=== PATIENT | female | born 1990 | race Caucasian/White ===

== ENCOUNTER → 2019-03-20 15:04 | Outpatient (CLI) | payer OTHER, SELFPAY | DX: Z23 Encounter for immunization (principal) | CPT/HCPCS: 90471; 90686 ==

== ENCOUNTER → 2020-02-06 02:33 | Outpatient (CLI) | payer OTHER, SELFPAY | PROVIDERS: Referring Provider Internal Medicine; Visit Provider Internal Medicine | DX: Z23 Encounter for immunization (principal) | CPT/HCPCS: 90471; 90686 ==

== ENCOUNTER → 2021-02-03 | Outpatient (CLI) | payer OTHER, SELFPAY | PROVIDERS: Referring Provider Internal Medicine; Visit Provider Internal Medicine | DX: Z23 Encounter for immunization (principal) | CPT/HCPCS: 90471; 90686 ==

== ENCOUNTER → 2022-04-20 07:40 | Outpatient (CLI) | payer OTHER, SELFPAY | PROVIDERS: Referring Provider Internal Medicine; Visit Provider Internal Medicine | DX: Z23 Encounter for immunization (principal) | CPT/HCPCS: 90471; 90686 ==

== ENCOUNTER 2022-07-23 11:32 | Emergency (ER) | payer OTHER, SELFPAY ==
[2022-07-23 11:35] VITALS: BP 136/90; PULSE 77; RESP 15; TEMP 36.4; O2SAT 100
[2022-07-23 12:01] LABS: Add Manual Diff / Slide Review NO; Basophils Absolute Auto 0 /uL (0-100); Basophils Percent Auto 0.7 % (0-2); Eosinophils Absolute Auto 100 /uL (0-450); Eosinophils Percent Auto 2.1 % (2-4); Hematocrit 42.8 % (36-46); Hemoglobin 14.7 g/dL (12.0-16.0); Lymphocytes Absolute Auto 1700 /uL (1100-4500); Mean Corpuscular HGB Conc 34.4 % (30-36); Mean Corpuscular Hemoglobin 31.3 PG (26-34); Mean Corpuscular Volume 91.1 fL (80-100); Monocytes Absolute Auto 500 /uL (0-900); Monocytes Percent Auto 8.6 % (3-14); Neutrophils Absolute Auto 3600 /uL (1500-7000); Neutrophils Percent Auto 59.6 % (50-75); Platelet Count 215 X10^3/uL (150-400); Red Cell Distribution Width 13.4 % (11.6-14.8)
[2022-07-23] MEDS: SODIUM CHLORIDE 0.9% 1,000 ML 1000 ML IV (12:04)
[2022-07-23 12:14] LABS: RBC Urine None Seen (0-5/HPF); Squamous Epithelial Cell Urine 1-5 /HPF (0-5/HPF); WBC Urine 1-5/HPF (0-5/HPF)
[2022-07-23 12:15] LABS: Bacteria Urine Few (2-10)
[2022-07-23 12:16] LABS: Alanine Aminotransferase 18 IU/L (<35); Albumin 5.1 g/dL (3.5-5.0); Albumin Globulin Ratio 1.3 (1.0-2.8); Alkaline Phosphatase 91 U/L (38-126); Aspartate Aminotransferase 22 IU/L (14-36); BUN Creatinine Ratio 14.1 (6-22); Bilirubin Total 0.7 mg/dL (0.2-1.3); Blood Urea Nitrogen 13 mg/dL (7-17); Calcium 9.4 mg/dL (8.4-10.2); Carbon Dioxide 29 mmol/L (22-32); Chloride 101 mmol/L (98-107); Estimated Glomerular Filt Rate > 60 mL/min (>60); Globulin 3.9 g/dL (1.7-4.1); Glucose 89 mg/dL (70-100); HEMOLYSIS < 15 (0-50); Lipase 72 U/L (23-300); Potassium 4.1 mmol/L (3.4-5.1); Sodium 139 mmol/L (137-145)
[2022-07-23 12:16] LABS: Culture Indicated Urine Cult Not Indicated; Mucus Urine 2+ (Negative)
--- NOTE | 2022-07-23 12:50 | ED.ABDPAIN ---
HPI - Abdominal Pain General Chief Complaint: Abdominal Pain Stated Complaint: abd pain N/ T-4 Time Seen by Provider: 07/23/22 12:14 Source: patient Mode of arrival: Ambulatory History of Present Illness HPI narrative: Patient is a healthy 31-year-old female who presents with right-sided abdominal pain. She reports feeling nauseous for the last 3-4 days losing at least 5 lb not eating not drinking no fever or chills. It is nonradiating. Denies painful frequent urination no flank pain. Pain is nonradiating seems to be in the middle of gallbladder right upper quadrant and lower or appendix is. Related Data Previous Rx's Medication Instructions Recorded ondansetron 4 mg disintegrating 4 mg PO Q6H PRN nausea and 07/23/22 tablet vomiting #10 tabs Allergies Allergy/AdvReac Type Severity Reaction Status Date / Time No Known Drug Allergies Allergy Verified 07/23/22 11:35 Review of Systems Review of Systems ROS Unobtainable: All systems reviewed & are unremarkable except as noted in HPI and below Patient History Social History Smoking Status: Unknown if ever smoked Smoking Status: Unknown if ever smoked alcohol intake frequency: holidays/special occasions only Substance Use Type: does not use Exam Initial Vital Signs Initial Vital Signs: Vital Signs Temperature 97.5 F L 07/23/22 11:35 Pulse Rate 77 07/23/22 11:35 Respiratory Rate 15 07/23/22 11:35 Blood Pressure 136/90 07/23/22 11:35 Pulse Oximetry 100 07/23/22 11:35 Oxygen Delivery Method Room Air 07/23/22 11:35 GENERAL: Alert pleasant funny well-appearing 31-year-old female and in [no acute] distress. HEENT: Head atraumatic,EOMI, pupils reactive, face symmetric, [moist] mucous membranes CARDIOVASCULAR: Regular rate and rhythm without murmurs, rubs or gallops. RESPIRATORY: Breath sounds equal bilaterally, no wheezes rales or rhonchi. ABDOMEN: Soft, mild right lower quadrant pain no guarding no rebound, minimal right upper quadrant pain negative Stratton no epigastric pain no distention : No CVA tenderness EXTREMITIES: Normal range of motion, no clubbing or edema. Neurovascularly intact NEUROLOGICAL: Alert and oriented x4. SKIN: Warm, dry, no laceration, no petechiae, no rashes or lesions. Course Orders Ordered: ED Orders 07/23/22 11:50 Complete Blood Count AUTO DIFF Stat Comprehensive Metabolic Panel Stat Lipase Stat 07/23/22 11:52 Urine Microscopic Stat 07/23/22 12:58 CT abdomen pelvis w con Stat 07/23/22 14:18 US pelvic complete Stat Discontinued Medications Aspirin (Aspirin 81 Mg Chew Tab) 324 mg PO NOW ONE Stop: 07/23/22 11:42 Last Admin: 07/23/22 11:43 Dose: Not Given Documented By: SAM Sodium Chloride (Normal Saline 0.9%) 1,000 mls @ 1,000 mls/hr IV BOLUS ONE Stop: 07/23/22 12:54 Last Infusion: 07/23/22 12:56 Dose: 0 mls/hr Documented By: Admin: 07/23/22 12:04 Dose: 1,000 mls/hr Documented By: JASVIR Ketorolac Tromethamine (Ketorolac 30 Mg/Ml Vial) 15 mg IV NOW ONE Stop: 07/23/22 12:59 Last Admin: 07/23/22 13:33 Dose: 15 mg Documented By: CLARISSA Ondansetron HCl (Ondansetron 4 Mg/2 Ml Inj) 4 mg IV NOW PRN PRN Reason: Nausea And Vomiting Vital Signs Vital signs: Vital Signs - 8 hr 07/23/22 16:08 Pulse Rate 78 Respiratory Rate 12 Blood Pressure 130/78 Pulse Oximetry 98 Oxygen Delivery Method Room Air MDM - Abdominal Pain Lab Data 07/23/22 11:50 07/23/22 11:50 Labs: Lab Results 07/23/22 07/23/22 07/23/22 Range/Units 11:50 11:50 11:52 WBC 6.0 (4.5-11.0) X10^3/uL RBC 4.70 (4.0-5.2) X10^6/uL Hgb 14.7 (12.0-16.0) g/dL Hct 42.8 (36-46) % MCV 91.1 (80-100) fL MCH 31.3 (26-34) PG MCHC 34.4 (30-36) % RDW 13.4 (11.6-14.8) % Plt Count 215 (150-400) X10^3/uL Neut % (Auto) 59.6 (50-75) % Lymph % (Auto) 29.0 (25-40) % Webster % (Auto) 8.6 (3-14) % Eos % (Auto) 2.1 (2-4) % Baso % (Auto) 0.7 (0-2) % Neut # (Auto) 3600 (4854-9562) /uL Lymph # (Auto) 1700 (8711-0835) /uL Webster # (Auto) 500 (0-900) /uL Eos # (Auto) 100 (0-450) /uL Baso # (Auto) 0 (0-100) /uL Sodium 139 (137-145) mmol/L Potassium 4.1 (3.4-5.1) mmol/L Chloride 101 (98-107) mmol/L Carbon Dioxide 29 (22-32) mmol/L BUN 13 (7-17) mg/dL Creatinine 0.92 (0.52-1.04) mg/dL Estimated GFR > 60 (>60) mL/min BUN/Creatinine Ratio 14.1 (6-22) Glucose 89 (70-100) mg/dL Calcium 9.4 (8.4-10.2) mg/dL Total Bilirubin 0.7 (0.2-1.3) mg/dL AST 22 (14-36) IU/L ALT 18 (<35) IU/L Alkaline Phosphatase 91 (38-126) U/L Total Protein 9.0 H (6.3-8.2) g/dL Albumin 5.1 H (3.5-5.0) g/dL Globulin 3.9 (1.7-4.1) g/dL Albumin/Globulin Ratio 1.3 (1.0-2.8) Lipase 72 (23-300) U/L Urine RBC None seen (0-5/HPF) Urine WBC 1-5/hpf (0-5/HPF) Ur Squamous Epith Cells 1-5 /hpf (0-5/HPF) Urine Bacteria Few (2-10) H (None) Urine Mucus 2+ H (Negative) Ur Culture Indicated? Cult not indicated Point of care testing: Point of Care Testing Test Results Negative Urine Dip Bedside Urine Glucose Negative Bedside Urine Bilirubin - Negative Bedside Urine Ketone +/- 5 Urine Specific Hardy 1.030 Bedside Urine Occult Blood - Negative Bedside Urine pH 5.5 Bedside Urine Protein + 30 Bedside Urine Urobilinogen - Negative Bedside Urine Nitrite - Negative Bedside Urine Leukocytes - Negative Esterase Imaging Data CT scan - abdomen/pelvis: Radiologist's Impression: PROCEDURE:? CT ABDOMEN PELVIS W CON ? INDICATIONS:? rlq pain ? TECHNIQUE:? After the administration of intravenous contrast, axial sections acquired from the lung bases to the pubic symphysis.? Coronal and sagittal reformats were performed.? For radiation dose reduction, the following was used:? automated exposure control, adjustment of mA and/or kV according to patient size.? ? COMPARISON:? None. ? FINDINGS:? Image quality:? Excellent.? ? Lung bases:? Unremarkable. Heart:? No significant findings. ? ABDOMEN: Liver:? Unremarkable.? ? Gallbladder:? Unremarkable.? ? Biliary ducts:? Unremarkable.? ? Pancreas:? Unremarkable.? ? Spleen:? Unremarkable.? ? Adrenal Glands:? Unremarkable.? ? Kidneys and Ureters:? Unremarkable.? ? ? Stomach and Bowel:? Stomach, small bowel loops, and colon are unremarkable.? Peritoneum:? No abnormal intraperitoneal fluid.? No free air.? ? Ventral Wall: ? No hernias.? Abdominal Nodes:? No retroperitoneal or mesenteric adenopathy by size criteria.? Vessels:? Aorta and inferior vena cava are normal in size.? ? PELVIS: Pelvic Organs:? Unremarkable.? ? Bladder:? Unremarkable.? ? Pelvic Nodes: No enlarged lymph nodes.? Miscellaneous: No hernias are seen.? ? A normal or abnormal appendix could not be located.? No right lower quadrant surgical clips are present.? ? Bones:? Unremarkable.? IMPRESSION:? Source of reported right-sided abdominal/pelvic pain is not seen.? A normal or abnormal appendix could not be located but no secondary CT evidence of acute appendicitis is found.? No urinary tract calculus or inflammation is seen on the right either.? No adnexal pathology found. ? ? Dictated by: Edwin Castro M.D. on 07/23/2022 at 14:24 ?? US - abdomen: Radiologist's Impression: PROCEDURE:? US PELVIC COMPLETE ? INDICATIONS:? RIGHT LOWER QUADRANT PAIN ? TECHNIQUE:? Real-time scanning was performed of the pelvic organs, with image documentation.? Additional endovaginal scanning was necessary due to incomplete visualization of the adnexal and endometrial structures by transabdominal scanning.? ? COMPARISON:? None. ? FINDINGS:? ?? Uterus:? Uterus is anteverted and normal in size at 3.6 x 4.5 x 8.2 cm. The myometrium is homogeneous. ? The endometrium measures 9 mm in combined thickness, focally prominent at the fundal portion of the endometrial lining over a craniocaudad length of 1.4 cm.? There is no associated abnormal fluid collection within the endometrial canal, and the focal prominence discussed above has increased vascularity within. ? Ovaries:? The right ovary measures 2.6 x 2.2 x 3.2 cm, with a calculated ovarian volume of 9.5 cc. The left ovary measures 3.3 x 2.3 x 2.5 cm, with a calculated ovarian volume of 9.9 cc. The ovaries have a normal sonographic appearance. Less than 12 follicles can be seen in each ovary.? No adnexal masses are seen.? There is a cystic structure at the right ovary that measures 1.7 x 1.4 x 2.2 cm without adjacent abnormal adnexal free fluid ? Other:? No pathologic free abdominal or pelvic fluid. ? ? IMPRESSION:? The ovaries appear normal, no suspicion for presence of ovarian torsion.? 2.2 cm maximal dimension right ovarian cyst incidentally noted. ? The endometrial lining is focally prominent at the fundal portion of the endometrium and appears normal more inferiorly.? The increased echotexture within the area of prominence is associated with internal vascularity and the appearance could represent evidence of an endometrial polyp.? Follow-up in 6-8 weeks to confirm resolution or persistence is recommended ? We strive to produce accurate, complete, and clear reports of imaging services. To assist us in improving patient care, this report was composed using standard report templates and voice recognition software. Therefore, it may contain abnormal punctuation, insertions and/or omissions. Occasional wrong-word or sound-alike substitutions may occur. Though we review the report and make efforts to correct it, we do recommend that the report be read carefully in proper context to recognize any text inaccuracies. ? ? Dictated by: Edwin Castro M.D. on 07/23/2022 at 15:21 ? ? MDM Narrative Medical decision making narrative: Patient healthy 31-year-old female who presents to the ongoing abdominal pain nausea. Blood work is overall reassuring leukocytosis electrolyte abnormality or AMINA. CT does not show any evidence kidney stone appendicitis diverticulitis or obstruction. Not significantly tender in the right upper quadrant and CT gallbladder was normal. Without any significant tenderness or elevation of liver enzymes or bilirubin I see no need for ultrasound of right upper quadrant. Pain is more in the lower questionable ovarian cyst pelvic ultrasound does not show any abnormality either. She is given Toradol minimal relief. She is under stress. At this time no need for any further workup or imaging. Given Zofran. Discharge Plan Departure Patient Disposition: Home Clinical Impression: Abdominal pain Instructions: DI for Abdominal Pain-Adult Activity Restrictions/Additional Instructions: Love you Brit. I didn't see anything causing your pain. You are under lots of stress. Be sure to take Omeprazole or antacid so you don't get an ulcer. Zofran for nausea--> [facility] Follow up with PCP next week Take good care!! xoxoxox Prescriptions: New ondansetron 4 mg tablet,disintegrating 4 mg PO Q6H PRN (Reason: nausea and vomiting) Qty: 10 0RF Referrals: ProviderVan [Primary Care Provider] - Stand Alone Forms: Patient Portal/API
--- NOTE | 2022-07-23 12:58 | DI.CT.S_ITS ---
PROCEDURE: CT ABDOMEN PELVIS W CON INDICATIONS: rlq pain TECHNIQUE: After the administration of intravenous contrast, axial sections acquired from the lung bases to the pubic symphysis. Coronal and sagittal reformats were performed. For radiation dose reduction, the following was used: automated exposure control, adjustment of mA and/or kV according to patient size. COMPARISON: None. FINDINGS: Image quality: Excellent. Lung bases: Unremarkable. Heart: No significant findings. ABDOMEN: Liver: Unremarkable. Gallbladder: Unremarkable. Biliary ducts: Unremarkable. Pancreas: Unremarkable. Spleen: Unremarkable. Adrenal Glands: Unremarkable. Kidneys and Ureters: Unremarkable. Stomach and Bowel: Stomach, small bowel loops, and colon are unremarkable. Peritoneum: No abnormal intraperitoneal fluid. No free air. Ventral Wall: No hernias. Abdominal Nodes: No retroperitoneal or mesenteric adenopathy by size criteria. Vessels: Aorta and inferior vena cava are normal in size. PELVIS: Pelvic Organs: Unremarkable. Bladder: Unremarkable. Pelvic Nodes: No enlarged lymph nodes. Miscellaneous: No hernias are seen. A normal or abnormal appendix could not be located. No right lower quadrant surgical clips are present. Bones: Unremarkable. IMPRESSION: Source of reported right-sided abdominal/pelvic pain is not seen. A normal or abnormal appendix could not be located but no secondary CT evidence of acute appendicitis is found. No urinary tract calculus or inflammation is seen on the right either. No adnexal pathology found. Dictated by: Edwin Castro M.D. on 07/23/2022 at 14:24 Approved by: Edwin Castro M.D. on 07/23/2022 at 14:26
[2022-07-23] MEDS: KETOROLAC 30 MG/ML VIAL 15 MG IV (13:33)
--- NOTE | 2022-07-23 14:18 | DI.US.S_ITS ---
PROCEDURE: US PELVIC COMPLETE INDICATIONS: RIGHT LOWER QUADRANT PAIN TECHNIQUE: Real-time scanning was performed of the pelvic organs, with image documentation. Additional endovaginal scanning was necessary due to incomplete visualization of the adnexal and endometrial structures by transabdominal scanning. COMPARISON: None. FINDINGS: Uterus: Uterus is anteverted and normal in size at 3.6 x 4.5 x 8.2 cm. The myometrium is homogeneous. The endometrium measures 9 mm in combined thickness, focally prominent at the fundal portion of the endometrial lining over a craniocaudad length of 1.4 cm. There is no associated abnormal fluid collection within the endometrial canal, and the focal prominence discussed above has increased vascularity within. Ovaries: The right ovary measures 2.6 x 2.2 x 3.2 cm, with a calculated ovarian volume of 9.5 cc. The left ovary measures 3.3 x 2.3 x 2.5 cm, with a calculated ovarian volume of 9.9 cc. The ovaries have a normal sonographic appearance. Less than 12 follicles can be seen in each ovary. No adnexal masses are seen. There is a cystic structure at the right ovary that measures 1.7 x 1.4 x 2.2 cm without adjacent abnormal adnexal free fluid Other: No pathologic free abdominal or pelvic fluid. IMPRESSION: The ovaries appear normal, no suspicion for presence of ovarian torsion. 2.2 cm maximal dimension right ovarian cyst incidentally noted. The endometrial lining is focally prominent at the fundal portion of the endometrium and appears normal more inferiorly. The increased echotexture within the area of prominence is associated with internal vascularity and the appearance could represent evidence of an endometrial polyp. Follow-up in 6-8 weeks to confirm resolution or persistence is recommended We strive to produce accurate, complete, and clear reports of imaging services. To assist us in improving patient care, this report was composed using standard report templates and voice recognition software. Therefore, it may contain abnormal punctuation, insertions and/or omissions. Occasional wrong-word or sound-alike substitutions may occur. Though we review the report and make efforts to correct it, we do recommend that the report be read carefully in proper context to recognize any text inaccuracies. Dictated by: Edwin Castro M.D. on 07/23/2022 at 15:21 Approved by: Edwin Castro M.D. on 07/23/2022 at 15:26
[2022-07-23 16:08] VITALS: BP 130/78; PULSE 78; RESP 12; O2SAT 98
== END 2022-07-23 16:08 | disposition home or self-care (01) ==
PROVIDERS: Emergency Provider Emergency Medicine
DX: R10.31 Right lower quadrant pain (principal)
CPT/HCPCS: 36415; 74177; 76830; 76856; 80053; 81003; 81015; 81025; 83690; 85025; 93975; 96361; 96374; 99284; J1885; Q9967

== ENCOUNTER → 2023-02-13 11:51 | Outpatient (CLI) | payer OTHER, SELFPAY | PROVIDERS: Referring Provider Family Medicine; Visit Provider Family Medicine | DX: Z23 Encounter for immunization (principal) | CPT/HCPCS: 90471; 90686 ==

== ENCOUNTER → 2023-05-06 18:34 | Outpatient (CLI) | payer OTHER, SELFPAY ==
[2023-05-06 20:18] LABS: Urine N gonorrhoeae NOT DETECTED
[2023-05-06 20:28] LABS: Urine Chlamydia NOT DETECTED
== END ==
PROVIDERS: Visit Provider Student in an Organized Health Care Education/Training Program
DX: N89.8 Other specified noninflammatory disorders of vagina (principal); Z11.3 Encounter for screening for infections with a predominantly sexual mode of transmission
CPT/HCPCS: 87210; 87491; 87591

== ENCOUNTER → 2023-05-08 19:43 | Outpatient (CLI) | payer OTHER, SELFPAY ==
[2023-05-09 17:44] LABS: HIV 1 & 2 Ab/Ag 4th Gen Combo NEGATIVE (NEGATIVE)
[2023-05-10 03:16] LABS: RPR Screen Non Reactive (Non Reactive)
[2023-05-11 05:52] LABS: HSV 1 DNA Negative (Negative); HSV 2 DNA Negative (Negative)
== END ==
PROVIDERS: Referring Provider Student in an Organized Health Care Education/Training Program; Visit Provider Student in an Organized Health Care Education/Training Program
DX: Z11.3 Encounter for screening for infections with a predominantly sexual mode of transmission (principal)
CPT/HCPCS: 36415; 86592; 87389; 87522; 87529

== ENCOUNTER → 2023-05-30 09:54 | Outpatient (CLI) | payer OTHER, SELFPAY ==
--- NOTE | 2023-05-30 09:54 | DI.US.S_ITS ---
PROCEDURE: US PELVIC COMPLETE INDICATIONS: endometrial polyp follow up TECHNIQUE: Real-time scanning was performed of the pelvic organs, with image documentation. Additional endovaginal scanning was necessary due to incomplete visualization of the adnexal and endometrial structures by transabdominal scanning. COMPARISON: [facility], US, US PELVIC COMPLETE, 07/23/2022, 14:45. FINDINGS: Uterus: Uterus is anteverted and normal in size at 7.4 x 5.4 x 3.3 cm. The myometrium is homogeneous. The endometrium measures 9 mm combined thickness. There is a 16 mm heterogeneous solid circular focus seen within the left superior aspect of the endometrium with internal vascularity and possible feeding vessel. This is not significantly changed. Ovaries: Within normal limits bilaterally. Other: No pathologic free abdominal or pelvic fluid. IMPRESSION: No significant change in heterogeneous endometrial focus. Polyp or neoplasm cannot be excluded. Gynecological consultation recommended. We strive to produce accurate, complete, and clear reports of imaging services. To assist us in improving patient care, this report was composed using standard report templates and voice recognition software. Therefore, it may contain abnormal punctuation, insertions and/or omissions. Occasional wrong-word or sound-alike substitutions may occur. Though we review the report and make efforts to correct it, we do recommend that the report be read carefully in proper context to recognize any text inaccuracies. Dictated by: Estiven Rick M.D. on 05/30/2023 at 11:39 Approved by: Estiven Rick M.D. on 05/30/2023 at 11:42
[2023-05-30 11:02] LABS: Add Manual Diff / Slide Review NO; Basophils Absolute Auto 100 /uL (0-100); Basophils Percent Auto 1.2 % (0-2); Eosinophils Absolute Auto 200 /uL (0-450); Hematocrit 39.6 % (36-46); Hemoglobin 13.3 g/dL (12.0-16.0); Lymphocytes Absolute Auto 1900 /uL (1100-4500); Lymphocytes Percent Auto 37.1 % (25-40); Mean Corpuscular HGB Conc 33.6 % (30-36); Mean Corpuscular Hemoglobin 31.3 PG (26-34); Mean Corpuscular Volume 92.9 fL (80-100); Monocytes Absolute Auto 500 /uL (0-900); Monocytes Percent Auto 9.5 % (3-14); Neutrophils Absolute Auto 2600 /uL (1500-7000); Neutrophils Percent Auto 49.2 % (50-75); Platelet Count 206 X10^3/uL (150-400); Red Blood Cell Count 4.26 X10^6/uL (4.0-5.2); Red Cell Distribution Width 13.3 % (11.6-14.8); White Blood Cell Count 5.2 X10^3/uL (4.5-11.0)
[2023-05-30 11:47] LABS: Estradiol, Total 25.5 pg/mL
== END ==
LOC: US 09:54
PROVIDERS: PCP Family Medicine; Referring Provider Family Medicine; Visit Provider Family Medicine
DX: N92.0 Excessive and frequent menstruation with regular cycle (principal); N84.0 Polyp of corpus uteri; N94.6 Dysmenorrhea, unspecified
CPT/HCPCS: 36415; 76856; 82670; 85025

== ENCOUNTER 2023-06-30 07:49 | Day surgery (SDC) | payer OTHER, SELFPAY ==
[2023-06-27 15:19] VITALS: BMI 27.6
--- NOTE | 2023-06-30 | PATH_ITS ---
[facility] Accession Number: [id number] No. of containers..03 Tissue . 01 Material submitted: . PART A: endocervix - ENDOCERVICAL CURETTINGS PART B: endometrium - ENDOMETRIAL POLYP PART C: endometrium - ENDOMETRIAL CURETTINGS . 01 Diagnosis: A. ENDOCERVIX, CURETTINGS: Fragments of benign endocervical and endometrial tissue. Negative for dysplasia and malignancy. . B. ENDOMETRIAL POLYP, BIOPSY: Fragments of benign endometrial polyp. Associated secretory endometrium. Negative for significant cytologic atypia, hyperplasia, and malignancy. . C. ENDOMETRIUM, CURETTINGS: Fragments of benign secretory endometrium with breakdown changes. Negative for significant cytologic atypia, hyperplasia, and malignancy. [facility] 07/05/2023 1658 Local . 01 Electronically signed: . Fifi Winslow MD, Pathologist NPI- [id number] . 01 Gross description: . A. Received in formalin labeled with the patient's name, , and endocervical curettings, and consists of multiple coyle soft tissue fragments admixed with mucohemorrhagic material aggregating to 2.3 x 1.5 x 0.1 cm. Filtered and submitted entirely in cassette A1. B. Received in formalin labeled with the patient's name, , and endometrial polyp, and consists of multiple coyle soft tissue fragments admixed with hemorrhagic material aggregating to 2.4 x 1.3 x 0.3 cm. Filtered and submitted entirely in cassette B1. C. Received in formalin labeled with the patient's name, , and endometrial curettings, and consists of multiple coyle soft tissue fragments admixed with hemorrhagic material aggregating to 2.3 x 0.9 x 0.2 cm. Filtered and submitted entirely in cassette C1. ([id number]) /NIKI 07/02/2023 2138 Local . 01 Pathologist provided ICD-10: N92.0, N84.0 . 01 CPT . 271001, 970163, 293929 Specimen Comment: A courtesy copy of this report has been sent to [phone] Performed at: 01 [facility] [address] [address] [place] [address], [place], [place] [id number] MD Jose Gutierres MD Phone: [phone]
[2023-06-30 08:13] VITALS: BP 126/87; PULSE 72; RESP 16; TEMP 36.8; O2SAT 98; BMI 27.6
--- NOTE | 2023-06-30 09:27 | SUR.OPER ---
Lithotomy on padded OR bed, head on pillow, arms secured on padded arm boards at <90 degrees abduction. Legs secured in padded yellow fins stirrups.
--- NOTE | 2023-06-30 09:34 | PM.PREOP ---
Pre-operative Note COVID-19 COVID-19 status: Not tested Interval Note History & Physical reviewed/Exam performed by Physician: Yes Changes to H&P: No
[2023-06-30] MEDS: SILVER NITRATE STICK 2 EACH TOP (10:24)
[2023-06-30 10:35] VITALS: BP 122/75; PULSE 96; RESP 15; TEMP 36.4; O2SAT 99
--- NOTE | 2023-06-30 10:35 | P.OP_ITS ---
Operative Date/Time/Diagnoses Date of procedure: 06/30/23 Time of procedure: 10:00 Pre-op diagnosis: Menorrhagia Endometrial mass Post-op diagnosis: same Procedure & Clinicians Procedure: Procedures Operation Date: 06/30/23 09:00 Actual Procedure Side Surgeon p D&C, Hysteroscopy, Removal of Endometrial Mass, Mirena insertion Ryan Ambriz MD Indications: The patient is a 32-year-old G0, LMP 05/30/2023 who presents with progressively heavy and painful periods over the last year or more. Her menses are regular but she does frequently have midcycle spotting. She has not sexually active and currently uses no form of control. Patient has no history of abnormal Paps. Ultrasound in June 2022 showed a possible endometrial polyp and a more recent pelvic ultrasound performed 05/30/2023 shows: FINDINGS: Uterus: Uterus is anteverted and normal in size at 7.4 x 5.4 x 3.3 cm. The myometrium is homogeneous. The endometrium measures 9 mm combined thickness. There is a 16 mm heterogeneous solid circular focus seen within the left superior aspect of the endometrium with internal vascularity and possible feeding vessel. This is not significantly changed. Ovaries: Within normal limits bilaterally. Other: No pathologic free abdominal or pelvic fluid. IMPRESSION: No significant change in heterogeneous endometrial focus. Polyp or neoplasm cannot be excluded. Gynecological consultation recommended. We had an extended discussion about the potential causes of both her menorrhagia as well as her progressively severe dysmenorrhea. The heavy, bright red bleeding with clot formation she has been experiencing is not normal menstrual bleeding and is most likely associated with presence of the endometrial polyp. After discussing options for further evaluation/treatment, will proceed with hysteroscopic polypectomy and dilation and curettage of the uterus. We also discussed the possibility of inserting a Mirena IUD at the time of the procedure but she is undecided about insertion of the Mirena at the time of hysteroscopy/ D&C. She presents now for her scheduled surgery. Surgeon: Ryan Ambriz Anesthesia Type: General Operative Notes Findings: There is an isolated endometrial polyp arising from the lateral surface of the endometrial cavity immediately distal to the left tubal ostia. It was removed in its entirety submitted as separate pathologic specimen. The remainder of the endocervical canal and endometrial cavity were unremarkable. Closure Type: not applicable Specimen(s): endometrial curettings, endometrial polyp and other (Endometrial curettings) Estimated blood loss (mL): 10 Blood products transfused: none Procedure in detail: With the patient under general LMA in the modified dorsal lithotomy position, the perineum, vagina, and lower abdomen were prepped and draped in the usual fashion for hysteroscopy with endometrial ablation. A pre-surgical safety time- out was then taken in accordance with [facility] Main OR protocols. A bivalve speculum was inserted in the vagina and the cervix visualized. The anterior lip of the cervix was grasped with a single-tooth tenaculum and the endocervical canal was then dilated to 6 mm diameter. Hysteroscope was placed through the endocervical canal into the endometrial cavity and the cavity was visualized findings as noted above. Polyp forceps then introduced into endometrial cavity and the bulk of the endometrial polyp was removed in that manner. The remaining base of polyp was then resected using MyoSure Lite and those fragments were submitted along with the bulk of the endometrial polyp as an aggregate specimen. Both tubal ostia were visualized following resection of the polyp and the endometrial cavity as well as the endocervical canal were documented photographically. The hysteroscope was then withdrawn and a fractional dilation and curettage was accomplished with separate pathologic specimen submitted for the endometrial and endocervical curettings. The c urettage was completed, insertion of a Mirena IUD was accomplished in the usual manner without difficulty the strings were trimmed to 3 cm and the tenaculum was then removed from the anterior lip of the cervix. Slight bleeding was noted from each of tenaculum puncture sites but was easily brought under control with application of silver nitrate. The speculum was then removed from the vagina and the patient awakened from anesthesia. She was then transferred to the PACU for a period of observation and recovery having tolerated the procedure well. Complications: none Post-operative Condition: stable Disposition: PACU Plan for aftercare: Routine post-op care.
[2023-06-30 10:41] VITALS: BP 123/80; PULSE 96; RESP 18; O2SAT 99
[2023-06-30] MEDS: OXYCODONE IR 5 MG TABLET PO (10:57)
[2023-06-30] MEDS: ACETAMINOPHEN IV 1,000 MG/100 ML VIAL 400 MG IV (10:57)
== END 2023-06-30 11:39 | disposition home or self-care (01) ==
PROVIDERS: PCP Family Medicine; Referring Provider Obstetrics & Gynecology; Visit Provider Obstetrics & Gynecology
PROC: 0UDB8ZZ Extraction of Endometrium, Via Natural or Artificial Opening Endoscopic (ICD-10-PCS; CPT 58558; principal; 2023-06-30 09:00)
DX: N92.0 Excessive and frequent menstruation with regular cycle (principal); N84.0 Polyp of corpus uteri; Z30.430 Encounter for insertion of intrauterine contraceptive device
CPT/HCPCS: 58558; 58300; C1776; J0136; J1100; J1885; J2250; J2405; J2704; J3010; J7298